=== PATIENT | female | born 1980 | race Caucasian/White ===

== ENCOUNTER → 2020-04-01 11:37 | Outpatient (CLI) | payer OTHER, SELFPAY ==
[2020-04-01 12:35] LABS: COVID19 -Nasal RAPID Negative (Negative)
== END ==
PROVIDERS: PCP Specialist; Visit Provider Specialist
DX: Z01.812 Encounter for preprocedural laboratory examination (principal); Z20.828 Contact with and (suspected) exposure to other viral communicable diseases
CPT/HCPCS: 87635

== ENCOUNTER → 2020-04-01 12:20 | Outpatient (CLI) | payer OTHER, SELFPAY ==
[2020-04-01 12:54] LABS: Add Manual Diff / Slide Review NO; Basophils Absolute Auto 0 /uL (0-100); Basophils Percent Auto 0.7 % (0-2); Eosinophils Absolute Auto 0 /uL (0-450); Eosinophils Percent Auto 0.9 % (2-4); Hematocrit 28.5 % (36-46); Hemoglobin 8.6 g/dL (12.0-16.0); Lymphocytes Absolute Auto 900 /uL (1100-4500); Lymphocytes Percent Auto 18.8 % (25-40); Mean Corpuscular HGB Conc 30.1 % (30-36); Mean Corpuscular Hemoglobin 20.4 PG (26-34); Mean Corpuscular Volume 67.9 fL (80-100); Monocytes Absolute Auto 500 /uL (0-900); Monocytes Percent Auto 10.2 % (3-14); Neutrophils Absolute Auto 3400 /uL (1500-7000); Neutrophils Percent Auto 69.4 % (50-75); Platelet Count 350 X10^3/uL (150-400); Red Cell Distribution Width 21.4 % (11.6-14.8); White Blood Cell Count 4.9 X10^3/uL (4.5-11.0)
[2020-04-01 13:24] LABS: Anisocytosis 2+; Microcytosis 2+; Poikilocytosis 2+
[2020-04-01 13:25] LABS: Ovalocytes 1+
== END ==
PROVIDERS: Referring Provider Specialist; Visit Provider Specialist
DX: N92.0 Excessive and frequent menstruation with regular cycle (principal)
CPT/HCPCS: 36415; 85025; 87635

== ENCOUNTER 2020-04-04 10:12 | Day surgery (SDC) | payer OTHER, SELFPAY ==
[2020-03-31 12:10] VITALS: BMI 27.4
[2020-04-04] VITALS (10 sets, daily range): BP systolic 86–155; BP diastolic 45–91; PULSE 70–100; RESP 12–18; TEMP 36.4–36.9; O2SAT 95–100; BMI 27.4
--- NOTE | 2020-04-04 | PATH_ITS ---
[facility] Accession Number: [id number] . 01 Material submitted: . PART A: endometrium - ENDOMETRIAL CURETTINGS PART B: uterus - UTERINE FIBROID . 02 Diagnosis: A. Endometrium, Curettings: Inactive/noncycling endometrium in a background of abundant blood and fibrin. No evidence of neoplasia or hyperplasia. . B. Designated Uterine Fibroid, Biopsies: Multiple fragments of myometrium and scant endometrium. No evidence of atypia, epithelial dysplasia, or malignancy. . [facility]V 04/07/2020 1434 Local . 02 Electronically signed: . Ebony Garcia MD, Pathologist NPI- [id number] . 01 Gross description: . A. Specimen A is received in formalin, labeled endometrial curettings and consists of multiple red-brown fragments of soft tissue, measuring 2.5 x 2.5 x 0.8 cm in aggregate. The specimen is filtered and entirely submitted in cassette A1. B. Specimen B is received in formalin, labeled uterine fibroid and consists of multiple herrera-white fragments of soft tissue and clotted blood, measuring 4.0 x 4.0 x 2.0 cm in aggregate. The specimen is entirely submitted in cassettes B1-B4. ([id number]) /[facility] 04/05/2020 1705 Local . 02 Microscopic: . Part B: Immunohistochemical stains were performed to characterize cells of interest. All control stains showed appropriate reactivity. . RESULTS: JOSE: Negative in the cells of interest. CD68: Variably positive in the cells of interest. CD10: Negative in the cells of interest. Desmin: Highlights muscle cells. Myosin: Highlights muscle cells. . INTERPRETATION: The cells in the area of interest show variable CD68 expression and are negative for cytokeratin JOSE and CD10, which is most consistent with histiocytes/reactive changes. The absence of JOSE argues against an epithelial neoplasm. . * This test was developed and its performance characteristics determined by [facility]. It has not been cleared or approved by the U.S. Food and Drug Administration. The FDA has determined that such clearance or approval is not necessary. This test is used for clinical purposes. It should not be regarded as investigational or for research. . 02 Pathologist provided ICD-10: N92.0 . 02 CPT . 217303, 094823, M47503, F08679 Performed at: 01 [facility] [address] [id number] MD Gaston Watkins MD Phone: [phone] Performed at: 02 [facility] [address] [place] [id number] MD Ebony Garcia MD Phone: [phone]
[2020-04-04] MEDS: ACETAMINOPHEN 325 MG TABLET 975 MG PO (10:50)
[2020-04-04] MEDS: LACTATED RINGERS 1,000 ML 42 ML IV (10:51)
[2020-04-04] MEDS: SCOPOLAMINE 1 PATCH TOP (10:51)
--- NOTE | 2020-04-04 11:33 | PM.PREOP ---
Pre-operative Note COVID-19 COVID-19 status: Negative Result date/Date tested (Pos, Neg/Pending): 04/01/20 Interval Note History & Physical reviewed/Exam performed by Physician: Yes Changes to H&P: No
[2020-04-04] MEDS: CEFAZOLIN 2 GM/100 ML FROZ.PIGGY IV (11:50)
--- NOTE | 2020-04-04 12:12 | SUR.OPER ---
Lithotomy on padded OR bed, head on pillow, arms secured on padded arm boards at <90 degrees abduction. Legs secured in padded yellow fins stirrups.
--- NOTE | 2020-04-04 12:58 | PM.OP.1 ---
Operative Date/Time/Diagnoses Date of procedure: 04/04/20 Time of procedure: 12:58 Pre-op diagnosis: menorrhagia, submucous fibroids on ultrasound Post-op diagnosis: same Procedure & Clinicians Procedure: hysteroscopy, D&C, resection of 2 submucous fibroids Same procedure as scheduled: Yes Indications: menorrhagia with submucous fibroids on ultrasound Surgeon: Montserrat Rocha Click Yes if Unassisted: Yes Anesthesia Type: General Operative Notes Findings: Normal exam under anesthesia. Uterus full of clots. Two submucous fibroids. Thin endometrium otherwise. Closure Type: not applicable Specimen(s): other ( Endometrial curettage and resected fibroid tissue) Estimated Blood Loss (mL): 50 Blood products transfused: none Procedure in detail: The patient was brought to the operating room where she underwent general anesthesia. She was placed in low stirrups She was prepped and draped in usual sterile fashion with pulsatile stockings in place and functional, warming in place, antibiotics in prior to beginning the case. Her bladder was drained with in and out catheter. 2 g of Ancef were in prior to beginning of the case. A single-tooth tenaculum was placed on the anterior lip of the cervix and the uterus dilated to #8 Hegar dilator. The hysteroscope was placed into the uterus with a sorbitol solution running and under constant suction. Endometrial curettage was performed. The resecting loop set at 80 W of cutting was used to resect the two fibroids down to the level of the endometrium. The fibroid tissue and the endometrial curettage was sent to pathology. The patient went to recovery room in good condition counts of instruments and sponges were correct. The sorbitol solution I=O approximately 6000 mL. Complications: none Post-operative Condition: stable Disposition: same day surgery Plan for aftercare: Home when awake and stable. We are arranging IV iron therapy
--- NOTE | 2020-04-04 13:09 | SUR.PHASEI ---
hand off to RICK Ocasio
== END 2020-04-04 14:05 | disposition home or self-care (01) ==
PROVIDERS: Referring Provider Specialist; Visit Provider Specialist
PROC: 0UDB8ZZ Extraction of Endometrium, Via Natural or Artificial Opening Endoscopic (ICD-10-PCS; CPT 58558; principal; 2020-04-04 11:30)
DX: D25.0 Submucous leiomyoma of uterus (principal); I10 Essential (primary) hypertension
CPT/HCPCS: 58561; J0690; J1100; J1885; J2250; J2405; J2704; J3010

== ENCOUNTER → 2020-04-19 14:00 | Oncology outpatient (ONC) | payer OTHER, SELFPAY ==
[2020-04-11] MEDS: IRON SUCROSE 100 MG in SODIUM CHLORIDE 0.9% 100 ML 105 ML IV (15:15)
[2020-04-11 16:23] VITALS: BP 127/77; PULSE 76; RESP 16; TEMP 36.9; O2SAT 100
[2020-04-13] MEDS: IRON SUCROSE 300 MG in SODIUM CHLORIDE 0.9% 250 ML 132.5 ML IV (13:46)
[2020-04-19] MEDS: IRON SUCROSE 300 MG in SODIUM CHLORIDE 0.9% 250 ML 132.5 ML IV (14:41)
== END ==
PROVIDERS: Referring Provider Specialist; Visit Provider Specialist
DX: D64.9 Anemia, unspecified (principal)
CPT/HCPCS: 96365; 96366; J1756

== ENCOUNTER → 2020-10-06 09:54 | Outpatient (CLI) | payer OTHER, SELFPAY ==
[2020-10-06 10:51] LABS: COVID19 -Nasal RAPID Negative (Negative)
== END ==
PROVIDERS: Referring Provider Specialist; Visit Provider Specialist
DX: Z01.812 Encounter for preprocedural laboratory examination (principal); Z20.822 Contact with and (suspected) exposure to COVID-19
CPT/HCPCS: 87635

== ENCOUNTER → 2020-10-06 10:47 | Outpatient (CLI) | payer OTHER, SELFPAY ==
[2020-10-06 11:56] LABS: Add Manual Diff / Slide Review NO; Basophils Absolute Auto 0 /uL (0-100); Basophils Percent Auto 0.8 % (0-2); Eosinophils Absolute Auto 0 /uL (0-450); Hematocrit 24.9 % (36-46); Hemoglobin 7.5 g/dL (12.0-16.0); Lymphocytes Absolute Auto 500 /uL (1100-4500); Lymphocytes Percent Auto 13.2 % (25-40); Mean Corpuscular HGB Conc 30.2 % (30-36); Mean Corpuscular Hemoglobin 19.8 PG (26-34); Mean Corpuscular Volume 65.6 fL (80-100); Monocytes Absolute Auto 300 /uL (0-900); Neutrophils Absolute Auto 2900 /uL (1500-7000); Platelet Count 249 X10^3/uL (150-400); Red Blood Cell Count 3.79 X10^6/uL (4.0-5.2); Red Cell Distribution Width 19.1 % (11.6-14.8); White Blood Cell Count 3.8 X10^3/uL (4.5-11.0)
[2020-10-06 12:18] LABS: Hypochromasia 1+; Microcytosis 3+
== END ==
PROVIDERS: Referring Provider Specialist; Visit Provider Specialist
DX: Z01.812 Encounter for preprocedural laboratory examination (principal); Z20.822 Contact with and (suspected) exposure to COVID-19; N92.0 Excessive and frequent menstruation with regular cycle
CPT/HCPCS: 36415; 85025; 87635

== ENCOUNTER 2020-10-07 08:34 | Day surgery (SDC) | payer OTHER, SELFPAY ==
[2020-10-06 07:47] VITALS: BMI 26.9
[2020-10-07] VITALS (8 sets, daily range): BP systolic 126–139; BP diastolic 83–91; PULSE 80–88; RESP 12–18; TEMP 36.9–37; O2SAT 100; BMI 26.9
--- NOTE | 2020-10-07 | PATH_ITS ---
[facility] Accession Number: [id number] . 01 Material submitted: . uterus - UTERUS, BILATERAL FALLOPIAN TUBES, AND OVARIES . 02 Diagnosis: Uterus, Bilateral Fallopian Tubes, and Ovaries, Supracervical Hysterectomy and Bilateral Salpingectomy (Weight 47 grams): Endocervix with no significant histomorphologic abnormality. Disordered proliferative endometrium; negative for glandular hyperplasia, cytologic atypia, or malignancy. Myometrium with multiple intramural leiomyomas (2-21 mm in greatest dimension). Uterine serosa with no significant histomorphologic abnormality. Right fallopian tube with no significant histomorphologic abnormality; negative for atypia or malignancy. Left fallopian tube with no significant histomorphologic abnormality; negative for atypia or malignancy. Cellular regions present in the adnexal tissue, suggestive of possible streak ovaries, as described in the operative report. No well-defined ovaries identified at gross examination; all adnexal tissue submitted for histologic evaluation. [facility] 10/14/2020 1048 Local . 02 Electronically signed: . Elissa Lyon MD, Pathologist NPI- [id number] . 01 Gross description: . The specimen is received in formalin, labeled uterus, bilateral fallopian tubes, and ovaries, and consists of a 47 g supracervically resected uterus measuring 7.5 cm from superior fundus to lower uterine segment by 5.5 cm from cornu to cornu by 3.6 cm from anterior to posterior. The specimen has been previously incised and disrupted in multiple areas. The serosa is herrera-pink and smooth. The specimen is further bivalved to reveal a 4.0 x 2.5 cm endometrial cavity with a herrera, glistening endometrium measuring 0.1 cm in thickness. The myometrium is herrera-pink and trabeculated, measuring 1.5 cm in thickness. There are multiple herrera-white, whorled leiomyomata ranging from 0.2 cm to 2.l cm with no areas of hemorrhage, necrosis, or cystic degeneration. The right fallopian tube measures 6.0 cm in length by 0.5 cm in diameter, and the left fallopian tube measures 7.5 cm in length by 0.6 cm in diameter. The serosa is pink-purple and smooth. Sectioning reveals a herrera-pink mucosa and a stellate lumen measuring 0.2 cm in diameter. No ovaries are identified. Also received is a 5.5 x 3.0 x 2.5 cm aggregate of red-brown clotted blood. Direct Sales Consultant sections are submitted. . A1: Anterior lower uterine segment/endocervix. A2: Posterior lower uterine segment/endocervix. A3-A4: Anterior uterus, to include sales representative printing supplies leiomyomata. A5-A6: Posterior uterus, to include sales representative printing supplies leiomyomata. A7: Direct Sales Consultant largest leiomyoma. A8: Right fallopian tube, sales representative printing supplies cross-sections and bisected fimbria. A9: Left fallopian tube, bisected fimbria, and central cross-sections. ([id number]) . Summary of sections (all remaining adnexal tissue submitted): A10 = Additional tube sections, four pieces. A11 = Additional adnexal sections, five pieces. A12 = Additional connective tissue, four pieces. A13 = Second tube, additional sections, five pieces. A14 = Connective tissue, additional sections, six pieces. ([id number]) /[facility] 10/14/2020 1048 Local . 02 Pathologist provided ICD-10: N92.0 . 02 CPT . 202627 Performed at: 01 [facility] [address] [id number] MD Gaston Watkins MD Phone: [phone] Performed at: 02 [facility] [id number] [address] [place] [id number] MD Ebony Garcia MD Phone: [phone]
--- NOTE | 2020-10-07 09:28 | PM.PREOP ---
Pre-operative Note COVID-19 COVID-19 status: Negative Result date/Date tested (Pos, Neg/Pending): 10/06/20 Interval Note History & Physical reviewed/Exam performed by Physician: Yes Changes to H&P: No
[2020-10-07] MEDS: LACTATED RINGERS 1,000 ML 42 ML IV (09:33)
[2020-10-07] MEDS: CEFAZOLIN 1 GM VIAL 2 GM IV (10:00)
--- NOTE | 2020-10-07 10:09 | SUR.OPER ---
Lithotomy on padded OR bed, head on pillow, arms padded and tucked at sides. Legs secured in padded yellow fins stirrups.
[2020-10-07] MEDS: BUPIVACAINE 0.5% (PF) VIAL 30 ML INJ (10:17)
[2020-10-07] MEDS: ROPIVACAINE 0.2% PF 2 MG/ML 10ML AMP 20 ML INJ (10:19)
--- NOTE | 2020-10-07 11:15 | PM.OP.1 ---
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 Closure Type: primary Specimen(s): other ( Uterus above the level the cervix, fallopian tubes with streak ovaries) Estimated Blood Loss (mL): 10 Blood products transfused: none Procedure in detail: Patient is brought to the operating room where she underwent general anesthesia and placed in low surgical [facility] stirrups. She was prepped and draped in the usual sterile fashion. A check list was reviewed with the staff in the room prior to beginning of the case. Patient had pulsatile stockings in place and functional. 2 g of Ancef were in prior to beginning of the case.. A Moeller catheter was placed. A single-tooth tenaculum was placed on the anterior lip of the cervix and the cervix dilated to a #6 Hegar dilator. The uterine manipulator was placed through the cervix into the uterus with the balloon inflated with 3 mL of air. The area of the umbilical incision and the 5 mm right and left lower quadrant incisions were injected with Marcaine. An incision was made with scalpel. The verries needle was placed into the abdomen and confirmed in the appropriate place with withdrawal on a syringe and then free flow of fluid down through the needle. The abdomen was insufflated with CO2. The needle was removed and a 5 mm trocar placed without difficulty. There did not appear to be any damage is placement of the trocar. The right and left lower quadrant incisions were made with the scalpel and the trochars placed without damage to internal structures. The PK forceps were used to cauterize the infundibulopelvic ligaments. Dr. Leon did the patient's left side I did the patient's right side. Sequential bites were taken along the broad ligaments followed by the round ligaments on both sides. Sequential bites were taken down the broad ligaments. The uterine arteries were cauterized. An incision was made above the level bladder pushing the bladder away from the cervix. The DIEGO loop was placed around the uterus and the uterus was amputated above the level of the bladder. Bleeding was controlled with the PK forceps. The PK forceps were used to cauterize in the endocervical canal. A supracervical incision was made and an 11 mm port placed. A 15 mm Endo Catch bag was placed in the abdomen. The uterus, tubes and ovaries were placed in the bag and brought up through the suprapubic port site. The Destin O was placed. The uterus was hand morselized. The abdomen was reinsufflated and adequate hemostasis was noted. The trochars were removed and the CO2 allowed escape from the abdomen. The fascia layer of the suprapubic site was repaired with 0 Polysorb suture. Skin was closed with 4-0 Monocryl suture at the suprapubic site and the other 3 sites. The patient went to recovery room in good condition. Counts of instruments and sponges were correct. Dr. Leon was present throughout the case to assist with holding the camera, retracting, cauterizing and cutting the structures on the left side of the patient, as well as assisting with morselization of the uterus. Complications: none Post-operative Condition: stable Disposition: same day surgery Plan for aftercare: home when stable
[2020-10-07] MEDS: IRON SUCROSE 100 MG in SODIUM CHLORIDE 0.9% 100 ML 420 ML IV (11:53)
[2020-10-07] MEDS: LACTATED RINGERS 500 ML 1000 ML IV (13:40)
--- NOTE | 2020-10-07 14:01 | SUR.PHASEII ---
1210- patient moved to phase 2.
--- NOTE | 2020-10-07 15:25 | SUR.PHASEII ---
Addendum entered by Doris Mckeon R.N. 10/07/20 16:22: 1545: dr. owusu states patient is cleared to go home. Original Note: PATIENT VOIDED 250CC'S ERIC URINE. PVR ZERO. DRINKING JUICE, EATING PUDDING AND CRACKERS. RATES PAIN 2/10. STATES FEELS FINE. VSS. LEFT MSG AT DR. OWUSU'S OFFICE TO ASK FOR CLEARANCE TO SEND PATIENT HOME. AWAITING RESPONSE.
== END 2020-10-07 15:55 | disposition home or self-care (01) ==
PROVIDERS: PCP Specialist; Referring Provider Specialist; Visit Provider Specialist
PROC: 0UT94ZL Resection of Uterus, Supracervical, Percutaneous Endoscopic Approach (ICD-10-PCS; CPT 58542; principal; 2020-10-07 09:45)
DX: N92.0 Excessive and frequent menstruation with regular cycle (principal); I10 Essential (primary) hypertension; E78.5 Hyperlipidemia, unspecified; Q96.0 Karyotype 45, X; D25.1 Intramural leiomyoma of uterus
CPT/HCPCS: 58542; J0690; J1100; J1756; J1885; J2250; J2405; J2704; J2795; J3010